=== PATIENT | female | born 1950 | race African-American/Black ===

== ENCOUNTER → 2021-03-19 | Day surgery (SDC) | payer MEDICARE ==
[~2021-03-19] VITALS: Ht 157.5 cm; Wt 200.0 kg
[~2021-03-19] MED LIST: HYDROmorphone 2 MG/ML VIAL IVP PRN; IV RINGERS,LACTATED 1000ML 1,000 ML IV SCH; LIDOCAINE 2% PF 5 ML VIAL. ONE; LISI1TAB37 PO; MORPHINE SULFATE 2 MG/ML VIAL. IVP PRN; PROCHLORPERAZINE 10 MG/2 ML VIAL. IVP PRN; PROPOFOL 10 MG/ML (20ML) VIAL. IV ONE; SIMV20TA18 PO; fentaNYL PF VIAL 100 MCG/2 ML VIAL IVP PRN
[2021-03-19 12:28] VITALS: BP 142/72
--- NOTE | 2021-03-19 12:58 | PDOC1 ---
History and Physical Date of Admission Date of Admission DATE: 03/19/21 TIME: 12:53 Identification/Chief Complaint Chief Complaint CRC screening Source Source: Chart review, Patient History of Present Illness History of Present Illness 70 y/o female here for colon cancer screening. Normal screening exam in 2009. No symptoms. Past Medical History Cardiovascular: HTN, Hyperlipidemia Pulmonary: Asthma Musculoskeletal: Osteoarthritis Past Surgical History Past Surgical History: No pertinent history Family History Family History: Coronary Artery Disease Social History Smoke: No ALCOHOL: none Drugs: None Current Medications Current Medications Current Medications Fentanyl Citrate (Fentanyl 2ml Vial) 25 mcg PRN Q5MIN PRN IVP MILD PAIN 1-3; Start 03/19/21 at 06:00; Stop 03/20/21 at 05:59 Fentanyl Citrate (Fentanyl 2ml Vial) 50 mcg PRN Q5MIN PRN IVP MODERATE PAIN 4- 6; Start 03/19/21 at 06:00; Stop 03/20/21 at 05:59 Morphine Sulfate (Morphine Sulfate) 1 mg PRN Q10MIN PRN IVP SEVERE PAIN 7-10; Start 03/19/21 at 06:00; Stop 03/20/21 at 05:59 Ringer's Solution 1,000 ml @ 30 mls/hr Q24H IV Last administered on 03/19/21at 12:31; Start 03/19/21 at 06:00; Stop 03/19/21 at 17:59 Hydromorphone HCl (Dilaudid) 0.5 mg PRN Q10MIN PRN IVP SEVERE PAIN 7-10, 2nd CHOICE; Start 03/19/21 at 06:00; Stop 03/20/21 at 05:59 Prochlorperazine Edisylate (Compazine) 5 mg PACU PRN PRN IVP NAUSEA, MRX1; Start 03/19/21 at 06:00; Stop 03/20/21 at 05:59 Active Scripts Active Reported Lisinopril-Hctz 20-12.5 Mg Tab (Lisinopril/Hydrochlorothiazide) 1 Each Tablet 1 Tab PO DAILY Simvastatin 20 Mg Tablet 20 Mg PO HS Allergies Allergies: Coded Allergies: No Known Drug Allergies (Unverified , 03/19/21) ROS Review of System Otherwise negative. Physical Exam General: Alert, Oriented X3, Cooperative, No acute distress Lungs: Clear to auscultation Heart: S1S2, RRR, no gallops, no murmurs Abdomen: Normal bowel sounds, Soft, No tenderness, No hepatosplenomegaly, No masses Rectal Exam: deferred (to time of procedure) Extremities: No cyanosis, No edema Skin: No significant lesion Neuro: Normal gait, Normal speech, Strength at 5/5 X4 ext, Normal tone, Sensation intact, Cranial nerves 3-12 NL, Reflexes 2+ Psych/Mental Status: Mental status NL, Mood NL Vitals Vitals Vital Signs Date Time Temp Pulse Resp B/P (MAP) Pulse Ox O2 Delivery O2 Flow Rate FiO2 03/19/21 12:28 98.3 74 20 97 98.3 VTE Prophylaxis Ordered VTE Prophylaxis Devices: No VTE Pharmacological Prophylaxi: No Assessment/Plan Assessment/Plan IMP: At average risk for CRC, due for screening. PLAN: Colonoscopy. JESSICA GAUTHIER MD Mar 19, 2021 12:58
--- NOTE | 2021-03-19 13:50 | PDOC4 ---
PROCEDURE Procedure Colonoscopy Indication: screening, average risk. Meds: per anesthesia Findings: OLGA--normal --'Scope advanced to cecum. Prep adequate. Mucosa normal. Scattered small diverticula throughout. Small internal hemorrhoids on retroflex. No polyps, etc. Veronika. well. IMP: Diverticulosis IH"s REC: Resume diet, meds as pre-procedure. F/u with me prn. If health remains good, consider repeat exam in 10 years. JESSICA GAUTHIER MD Mar 19, 2021 13:50
[2021-03-19 14:10] VITALS: BP 193/80
== END | disposition home or self-care (01) ==
LOC: SURG 11:57
PROVIDERS: ATTEND Internal Medicine Gastroenterology
DX: Z12.11 Encounter for screening for malignant neoplasm of colon (principal); K64.0 First degree hemorrhoids; K57.30 Diverticulosis of large intestine without perforation or abscess without bleeding; I10 Essential (primary) hypertension; J45.909 Unspecified asthma, uncomplicated; M19.90 Unspecified osteoarthritis, unspecified site; E78.00 Pure hypercholesterolemia, unspecified; Z90.710 Acquired absence of both cervix and uterus; Z98.890 Other specified postprocedural states; Z79.899 Other long term (current) drug therapy
CPT/HCPCS: G0121; J2704; 45378